=== PATIENT | male | born 1995 | race Caucasian/White ===

== ENCOUNTER 2018-07-19 01:26 | Emergency (ER) | payer OTHER ==
--- NOTE | 2018-07-19 02:00 | ER Document Report ---
ED General - General Chief Complaint: Psych Problem Stated Complaint: IVC Time Seen by Provider: 07/19/18 01:48 Notes: Patient presents with suicidal ideation. Per his he was drinking heavily, and texted his neighbor a picture of his gun stating he wanted to kill himself. Patient has untreated PTSD and depression and has stopped drinking but had a relapse. He is never been hospitalized. He has no medical illness. He is here of his own accord/the exercise physiology professor brought him in. TRAVEL OUTSIDE OF THE [place] IN LAST 30 DAYS: No - Related Data Allergies/Adverse Reactions: No Known Allergies Allergy (Unverified 07/19/18 01:31) Past Medical History - Social History Smoking Status: Never Smoker Family History: None Review of Systems - Review of Systems Notes: REVIEW OF SYSTEMS GEN: Denies fever, chills, weight loss ENT: Denies sore throat, nasal discharge, ear pain EYES: Denies blurry vision, eye pain, discharge CV: Denies chest pain, palpitations, edema RESP: Denies cough, shortness of breath, wheezing GI: Denies abdominal pain, nausea, vomiting, diarrhea MSK: Denies joint pain/swelling, edema, SKIN: Denies rash, skin lesions LYMPH: Denies swollen glands/lymph nodes NEURO: Denies headache, focal weakness or numbness, dizziness PSYCH: Oppression alcohol suicidal ideation PHYSICAL EXAMINATION General: No acute distress, well-nourished Head: Atraumatic, normocephalic ENT: Mouth normal, oropharynx moist, no exudates or tonsillar enlargement Eyes: Conjunctiva normal, pupils equal, lids normal Neck: No JVD, supple, no guarding CVS: Normal rate, regular rhythm, no murmurs Resp: No resp distress, equal and normal breath sounds bilaterally GI: Nondistended, soft, no tenderness to palpation, no rebound or guarding Ext: No deformities, no edema, normal range of motion in upper and lower ext Back: No CVA or midline TTP Skin: No rash, warm Lymphatic: No lymphadeopathy noted Neuro: Awake, alert. Face symmetric. GCS 15. Physical Exam - Vital signs Vitals: Temp Pulse BP Pulse Ox 98.6 F 87 143/86 H 97 07/19/18 01:33 07/19/18 01:33 07/19/18 01:33 07/19/18 01:33 Course - Re-evaluation Re-evalutation: 07/19/18 01:56 Alcohol intoxication with suicidal ideation, recurrent. Off medication. 24- hour hold, psych consult, medical workup. Medically cleared for psych evaluation. No significant intoxication or withdrawal on my assessment. 07/19/18 01:58 - Vital Signs Vital signs: Temp Pulse Resp BP Pulse Ox 98.6 F 87 143/86 H 97 07/19/18 01:33 07/19/18 01:33 07/19/18 01:33 07/19/18 01:33 Discharge - Discharge Clinical Impression: Suicidal ideation Alcohol intoxication Qualifiers: Complication of substance-induced condition: uncomplicated Qualified Code(s): F10.920 - Alcohol use, unspecified with intoxication, uncomplicated Condition: Stable
[2018-07-19 03:47] LABS: ABSOLUTE BASOPHILS # (AUTO) 0.1 10^3/uL (0.0-0.2); ABSOLUTE LYMPHOCYTES (AUTO) 1.9 10^3/uL (0.5-4.7); ABSOLUTE MONOCYTES (AUTO) 0.3 10^3/uL (0.1-1.4); ABSOLUTE NEUT (AUTO) 7.7 10^3/uL (1.7-8.2); BASOPHILS % (AUTO) 0.5 % (0-2); EOSINOPHILS % (AUTO) 0.4 % (0-6); HEMATOCRIT 42.8 % (37.9-51.0); HEMOGLOBIN 15.1 g/dL (13.5-17.0); LYMPHOCYTES % (AUTO) 18.9 % (13-45); MEAN CORPUSCULAR HEMOGLOBIN 32.1 pg (27.0-33.4); MEAN CORPUSCULAR HGB CONC 35.4 g/dL (32.0-36.0); MEAN CORPUSCULAR VOLUME 91 fl (80-97); MONOCYTES % (AUTO) 3.3 % (3-13); PLATELET COUNT 198 10^3/uL (150-450); RED BLOOD COUNT 4.72 10^6/uL (4.35-5.55); RED CELL DISTRIBUTION WIDTH 13.4 % (11.5-14.0); SEGMENTED NEUTROPHILS % (AUTO) 76.9 % (42-78); TOTAL CELLS COUNTED % (AUTO) 100 %
[2018-07-19 03:54] LABS: ALCOHOL 112 mg/dL (NONE DETECTED); ANION GAP 17 (5-19); BLOOD UREA NITROGEN 13 mg/dL (7-20); CALCIUM 9.3 mg/dL (8.4-10.2); CARBON DIOXIDE 26 mmol/L (22-30); CHLORIDE 103 mmol/L (98-107); GLUCOSE 161 mg/dL (75-110); POTASSIUM 4.4 mmol/L (3.6-5.0)
[2018-07-19 04:06] LABS: URINE AMPHETAMINES SCREEN NEGATIVE; URINE BARBITURATES SCREEN NEGATIVE; URINE BENZODIAZEPINES SCREEN NEGATIVE; URINE COCAINE SCREEN NEGATIVE; URINE MARIJUANA (THC) SCREEN NEGATIVE; URINE METHADONE SCREEN NEGATIVE; URINE PHENCYCLIDINE SCREEN NEGATIVE
--- NOTE | 2018-07-19 10:32 | PSYCHOLOGICAL NOTE ---
Psych Note - Psych Note Date seen by psych provider: 07/19/18 Time seen by psych provider: 07:55 Psych Note: Reason for Consult: Suicidal ideation Patient presents with suicidal ideation. Per his he was drinking heavily, and texted his neighbor a picture of his gun stating he wanted to kill himself. Clinician spoke with patient who states that he was brought to [facility] via "copper tapper. " He states he is here because he "called the wrong people." When asked for further clarification he states that they called the food or baggage handling rampman on him because he was "getting crazy." When asked for clarification of getting crazy means he stated "I was just drinking." When asked the patient about his gun and what happened he stated "nothing really." He then stated "I just put in the my cup ballard." He refused to further engage in discussing why he had his weapon out. He states that he has not been to his outpatient provider in a few months and [facility] [place] [facility]. He denies ever being inpatient psychiatric treatment. When asked if the patient is on any medications he states "whole bag of meds." [facility]. patient has reported diagnosis of depression and excessive daytime sleepiness. He is currently on 6 medications. They will be faxing the current list of medications to the behavioral health team. [facility] armodafinil 150 mg every morning, baclofen 10 mg 3 times daily as needed, diclofenac, Fluoxetine 40mg daily, meloxicam 7.5mg twice daily, pregabalin 75mg three times daily. Behavioral health team contacted patient's ; please see mental health note Patient is alert and orientated to person, place, time and circumstance. Mood is irritable with incongruent affect as evidenced by patient smiling during entire evaluation. Delusions are absent behaviors congruent with an intact reality based presentation i.e. organized and linear thought process. Thought content is very guarded. Patient does not make any eye contact. Intellectual abilities appear to be within the average range. Conversational speech is very flippant and minimizing of last night's event. Attention and concentration are poor. Insight, judgment, impulse control are poor. Medication recommendations per [facility]'s contracted psychiatrist Dr Guadalupe OLIVEIRA are as follows effexor 37.5mg twice daily buspar 10mg twice daily Diagnosis 311 (F32.9) unspecified depressive disorder impression\\plan: Patient is recommended for continue of IVC. Patient is attempting to minimize will not effectively engage with clinician. Patient is smiling the whole time and states the last night he was just drinking and that "nothing really was going on." Patient does confirm he had is gone however states that he put it in his cup ballard but will not discuss why he had his gun out. Patient states [facility] but reportedly has not been taking them for 2 months. Patient will be reevaluated. Dr. Tran was consulted and the care management this patient; attending physician is agreement with recommendations and disposition.
--- NOTE | 2018-07-19 10:52 | ER Document Report ---
Doctor's Note Notes: 07/19/18 10:51 Rounds: Chart reviewed. Patient sleeping and not awakened for interview. Patient is being evaluated for suicidal ideation and alcohol abuse. History of PTSD and depression. He is out of any medicines that he may have been taking. Labs were normal except for his alcohol level of 112. Vital signs of all been normal. Patient appears to be medically stable for transfer or discharge. Francisco Narvaez MD 07/19/18 18:49 Patient is complaining of back pain, saying it because of laying in the bed all day. 975 mg acetaminophen ordered.
[2018-07-19] MEDS: BUSPIRONE HCL 10 MG TABLET PO SCH (17:22)
[2018-07-19] MEDS: VENLAFAXINE HCL 37.5 MG CAP.SR.24H PO SCH (17:22)
[2018-07-19] MEDS ORDERED: ACETAMINOPHEN 325 MG TABLET PO ONE (18:48)
[2018-07-20] MEDS ORDERED: ONDANSETRON 4 MG TAB.RAPDIS PO ONE (02:18)
[2018-07-20] MEDS: BUSPIRONE HCL 10 MG TABLET PO SCH ×2 (09:32→17:25)
[2018-07-20] MEDS: VENLAFAXINE HCL 37.5 MG CAP.SR.24H PO SCH ×2 (09:32→17:25)
--- NOTE | 2018-07-20 09:50 | ER Document Report ---
Doctor's Note Notes: Patient seen and examined. Vital signs reviewed. Prior notes reviewed. Patient was seen by the mental health team, and started on medications, for depression and PTSD. Patient reportedly had sent a text message to a friend, with a picture of his gun. The patient claims that this is a misunderstanding and that his friend took it the wrong way. I asked him to elaborate on this, but he was not able to. I discussed with him that we need to understand why this occurred, and why he sent this threatening message. Patient states that again it was just a misunderstanding. We will continue to monitor, patient may need placement if he does not reveal or explain more why he did what he did.
--- NOTE | 2018-07-20 11:12 | PSYCHOLOGICAL NOTE ---
Psych Note - Psych Note Date seen by psych provider: 07/20/18 Time seen by psych provider: 10:45 Psych Note: Reason for Consult: Suicidal ideation Patient presents with suicidal ideation. Per his he was drinking heavily, and texted his neighbor a picture of his gun stating he wanted to kill himself. Check-in conducted with patient Patient originally attempted to not discuss or engage with clinician however once clinician explained that the patient need to discuss what occurred, the patient states he is here because of a misunderstanding. When asked to explain what that misunderstanding was he states that his friend "got scared and called the cable respooler." Patient was asked to explain why his friend got scared he stated "I do not know, I just told him I was communing with our departed friends." Clinician obtain clarification that "departed friends" meant friends that have . He continues state that it been a long time since he had done it and that he was "just talking to them." Clinician asked about the patient sending the picture of his gun, he confirms he sent it but states "it had nothing to do with it." When again asked if his comment and picture of his gun could have possibly concerned his friend he stated "no he just misunderstood." Patient continues to make no eye contact and minimize. Medication recommendations per [facility]'s contracted psychiatrist Dr Guadalupe OLIVEIRA are as follows effexor 37.5mg twice daily buspar 10mg twice daily Diagnosis 311 (F32.9) unspecified depressive disorder Impression\\plan: Patient is recommended for continue of IVC. Patient is attempting to minimize will not effectively engage with clinician. Patient will not make eye contact. When talking about the past evenings events be only states it was a misunderstanding. Medication recommendations have been submitted. Patient will be reevaluated. Dr. Tran was consulted and the care management this patient; attending physician is agreement with recommendations and disposition.
[2018-07-21 08:10] VITALS: BP 131/84
--- NOTE | 2018-07-21 15:00 | PSYCHOLOGICAL NOTE ---
Psych Note - Psych Note Psych Note: Reason for Consult: Suicidal ideation Patient presents with suicidal ideation. Per his he was drinking heavily, and texted his neighbor a picture of his gun stating he wanted to kill himself. Patient was accepted to [facility] in [facility]; transportation occurred this morning Medication recommendations per [facility]'s contracted psychiatrist Dr Guadalupe OLIVEIRA are as follows effexor 37.5mg twice daily buspar 10mg twice daily Diagnosis 311 (F32.9) unspecified depressive disorder Impression\plan: Patient is recommended for continue of IVC. Patient is attempting to minimize will not effectively engage with clinician. Patient will not make eye contact. When talking about the past evenings events be only states it was a misunderstanding. Patient was accepted to [facility] in [facility]; transportation occurred this morningDr. Tran was consulted and the care management this patient; attending physician is agreement with recommendations and disposition.
== END 2018-07-21 08:35 ==
LOC: ER 01:26
DX: R45.851 Suicidal ideations (principal); F10.120 Alcohol abuse with intoxication, uncomplicated; F32.9 Major depressive disorder, single episode, unspecified; F43.10 Post-traumatic stress disorder, unspecified
CPT/HCPCS: 99285; 36415; 80307 ×2; 85025; 80048; J3490 ×2; S0119